=== PATIENT | female | born 1995 | race Caucasian/White ===

== ENCOUNTER 2017-10-26 17:33 | Emergency (ER) | payer MEDICAID ==
[~2017-10-26] VITALS: Ht 165.1 cm; Wt 88.2 kg
[~2017-10-26 17:33] MED LIST: DIPH25TA89 PO; ESCI20TA15 PO; HYDR-3965 PO; ZIPR80CA2 PO
[2017-10-26 18:38] LABS: URINE HCG NEGATIVE (NEG)
[2017-10-26 18:43] LABS: CLARITY,URINE CLEAR (Clear); COLOR,URINE YELLOW (Yellow); GLUCOSE, URINE NEGATIVE (Neg); KETONES,URINE NEGATIVE (Neg); LEUKOCYTE ESTERASE ,URINE NEGATIVE (Neg); NITRITES, URINE NEGATIVE (Neg); OCCULT BLOOD,URINE NEGATIVE (Neg); PH,URINE 5.5 (4.8-8.0); PROTEIN,URINE NEGATIVE (Neg); UROBILINOGEN,URINE 0.2 E.U/dL (0.2-1.0)
[2017-10-26 18:56] LABS: UA COLLECTION TYPE VOIDED
[2017-10-26] MEDS ORDERED: ketorolac tromethamine 15mg/ml inj. IM ONE (19:35)
[2017-10-26 20:07] VITALS: BP 123/68
== END 2017-10-26 20:09 | disposition home or self-care (01) ==
LOC: ER 17:33
DX: M54.5 Low back pain (principal); N89.8 Other specified noninflammatory disorders of vagina; E11.9 Type 2 diabetes mellitus without complications; F12.10 Cannabis abuse, uncomplicated; Z88.2 Allergy status to sulfonamides; Z79.899 Other long term (current) drug therapy
CPT/HCPCS: 81003; 81025; 96372; 99284; J1885

== ENCOUNTER 2018-10-29 21:54 | Emergency (ER) | payer MEDICAID ==
[~2018-10-29] VITALS: Ht 165.1 cm; Wt 96.0 kg
[2018-10-29] MEDS ORDERED: albuterol 2.5 mg/0.5ml nebule NEB ONE (22:25)
[2018-10-29] MEDS ORDERED: albuterol 2.5 MG/3 ML nebule NEB ONE (22:25)
[2018-10-29] MEDS ORDERED: ALBU6.7H INH (22:51)
[2018-10-29] MEDS ORDERED: GUAI120015 PO (22:51)
[2018-10-29 23:00] VITALS: BP 143/71
== END 2018-10-29 23:02 | disposition home or self-care (01) ==
LOC: ER 21:55
DX: J45.901 Unspecified asthma with (acute) exacerbation (principal); J06.9 Acute upper respiratory infection, unspecified; E11.9 Type 2 diabetes mellitus without complications; F12.90 Cannabis use, unspecified, uncomplicated; Z98.890 Other specified postprocedural states; Z88.2 Allergy status to sulfonamides; Z79.899 Other long term (current) drug therapy
CPT/HCPCS: 71046; 94640; 94760; 99283; J7611

== ENCOUNTER 2019-01-30 17:25 | Emergency (ER) | payer MEDICARE, MEDICAID ==
[~2019-01-30] VITALS: Ht 165.1 cm; Wt 95.0 kg
[~2019-01-30 17:25] MED LIST changes: +ALBU6.7H9 INH; +GUAI120015 PO
[2019-01-30] MEDS ORDERED: TAM75C PO (18:11)
[2019-01-30 18:50] VITALS: BP 127/78
== END 2019-01-30 18:51 | disposition home or self-care (01) ==
LOC: ER 17:27
DX: J11.1 Influenza due to unidentified influenza virus with other respiratory manifestations (principal); E11.9 Type 2 diabetes mellitus without complications; F12.90 Cannabis use, unspecified, uncomplicated; Z98.890 Other specified postprocedural states; Z88.2 Allergy status to sulfonamides; Z79.899 Other long term (current) drug therapy
CPT/HCPCS: 99283

== ENCOUNTER 2019-11-13 23:31 | Emergency (ER) | payer MEDICARE, MEDICAID ==
[~2019-11-13] VITALS: Ht 165.1 cm; Wt 200.0 kg
[2019-11-13 23:51] LABS: CLARITY,URINE CLOUDY (Clear); COLOR,URINE STRAW (Yellow); GLUCOSE, URINE NEGATIVE (Neg); KETONES,URINE NEGATIVE (Neg); LEUKOCYTE ESTERASE ,URINE LARGE (Neg); NITRITES, URINE NEGATIVE (Neg); OCCULT BLOOD,URINE MODERATE (Neg); PROTEIN,URINE 30 mg/dl (Neg); UROBILINOGEN,URINE 0.2 E.U/dL (0.2-1.0)
[2019-11-13 23:56] LABS: UA COLLECTION TYPE CLN CATCH MIDSTREAM
[2019-11-14] LABS: BACTERIA,URINE NONE SEEN /HPF (Neg); SQUAMOUS EPITHELIAL CELL,UR FEW /LPF (FEW); WBC,URINE TNTC /HPF (0-4)
[2019-11-14 00:20] LABS: BASOPHILS # (AUTO) 0.2 X10'3 (0-0.2); BASOPHILS % (AUTO) 1.3 % (0-1); EOSINOPHILS # (AUTO) 0.2 X10'3 (0-0.9); EOSINOPHILS % (AUTO) 1.8 % (0-6); HEMATOCRIT 41.5 % (35.0-45.0); HEMOGLOBIN 13.9 g/dl (12.0-16.0); LYMPHOCYTES # (AUTO) 3.3 X10'3 (1.1-4.8); LYMPHOCYTES % (AUTO) 29.5 % (21-51); MEAN CORPUSCULAR HEMOGLOBIN 30.6 PG (27.0-31.0); MEAN CORPUSCULAR HGB CONC 33.4 g/dL (33.0-36.5); MEAN CORPUSCULAR VOLUME 91.6 FL (78-98); MEAN PLATELET VOLUME 6.7 FL (7.4-10.4); MONOCYTES # (AUTO) 1.2 X10'3 (0-0.9); MONOCYTES % (AUTO) 10.7 % (2-12); NEUTROPHILS # (AUTO) 6.4 X10'3 (1.8-7.7); NEUTROPHILS % (AUTO) 56.7 % (42-75); PLATELET COUNT 375 X10'3 (140-440); RED BLOOD COUNT 4.53 X10'6 (4.20-5.60); RED CELL DISTRIBUTION WIDTH 12.9 % (11.5-14.5); WHITE BLOOD COUNT 11.2 X10'3 (4.5-11.0)
[2019-11-14] MEDS ORDERED: ondansetron/PF 4mg/2ml inj IV ONE (00:25)
[2019-11-14] MEDS ORDERED: CefTRIAXone 2gm/D5W 50ml 50 ML IV ONE (00:25)
[2019-11-14] MEDS ORDERED: normal saline 1000ML IV soln IV ONE (00:25)
[2019-11-14] MEDS ORDERED: morphine 4 MG/ML inj SYRINge IV PRN (00:25)
[2019-11-14 00:31] LABS: URINE HCG NEGATIVE (NEG)
[2019-11-14 00:35] LABS: ALANINE AMINOTRANSFERASE 27 U/L (12-78); ALBUMIN 3.6 G/DL (3.4-5.0); ALBUMIN/GLOBULIN RATIO 0.8 (1.1-1.5); ALKALINE PHOSPHATASE 139 IU/L (46-116); ANION GAP 10 (8-16); ASPARTATE AMINO TRANSFERASE 20 U/L (10-37); BILIRUBIN,TOTAL 0.4 MG/DL (0.1-1.0); BLOOD UREA NITROGEN 11 MG/DL (7-18); BUN/CREATININE RATIO 9.3 (6.6-38.0); CALCIUM 8.4 MG/DL (8.5-10.1); CHLORIDE 101 MMOL/L (99-107); CREATININE 1.18 MG/DL (0.40-0.90); GLUCOSE 84 MG/DL (70-104); LIPASE 72 U/L (73-393); POTASSIUM 3.5 MMOL/L (3.5-5.1); SODIUM 137 MMOL/L (135-145); TOTAL PROTEIN 7.9 G/DL (6.4-8.2); eGFR 56 ML/MIN
[2019-11-14] MEDS ORDERED: CEPH500C5 PO (00:45)
[2019-11-14 02:50] VITALS: BP 115/71
== END 2019-11-14 02:51 | disposition home or self-care (01) ==
LOC: ER 23:32
DX: O86.21 Infection of kidney following delivery (principal); O90.89 Other complications of the puerperium, not elsewhere classified; E11.9 Type 2 diabetes mellitus without complications; F41.9 Anxiety disorder, unspecified; F31.9 Bipolar disorder, unspecified; F20.9 Schizophrenia, unspecified; F12.90 Cannabis use, unspecified, uncomplicated; Z86.69 Personal history of other diseases of the nervous system and sense organs; Z98.890 Other specified postprocedural states; Z88.2 Allergy status to sulfonamides; Z79.899 Other long term (current) drug therapy
CPT/HCPCS: 36415; 80053; 81001; 81025; 83690; 85025; 87077; 87088; 87186; 96365; 96375; 99284; J0696; J2270; J2405; J7030

== ENCOUNTER 2020-12-13 23:30 | Emergency (ER) | payer MEDICARE, MEDICAID ==
[~2020-12-13] VITALS: Ht 165.1 cm; Wt 220.0 kg
[2020-12-14 01:00] VITALS: BP 123/69
== END 2020-12-14 01:00 | disposition home or self-care (01) ==
LOC: ER 23:30
DX: G43.909 Migraine, unspecified, not intractable, without status migrainosus (principal); G40.909 Epilepsy, unspecified, not intractable, without status epilepticus; F12.90 Cannabis use, unspecified, uncomplicated; Z98.890 Other specified postprocedural states; Z98.891 History of uterine scar from previous surgery; Z88.2 Allergy status to sulfonamides; Z79.899 Other long term (current) drug therapy
CPT/HCPCS: 93005; 99283

== ENCOUNTER 2021-10-16 18:17 | Emergency (ER) | payer MEDICARE, MEDICAID ==
[~2021-10-16] VITALS: Ht 165.1 cm; Wt 100.0 kg
[2021-10-16 18:33] VITALS: BP 133/85
[2021-10-16] MEDS ORDERED: erythromycin ophthalmic ointment 1gm tube LEFTEYE ONE (19:00)
[2021-10-16] MEDS ORDERED: proparacaine 0.5% ophthalmic drops 15ml LEFTEYE ONE (19:00)
--- NOTE | 2021-10-16 19:46 | NUR ---
proparacain placed on bedside table for er
[2021-10-16] MEDS ORDERED: prednisoLONE acetate 1% ophth susp 5ml LEFTEYE SCH (20:00)
--- NOTE | 2021-10-17 10:44 | NUR ---
Medical not sent in to pharmacy. patient called. Dr. Rodriguez wanted to place patient on Prednisolone 1% 1 drop left eye BID with 0 refills. This [facility] was [facility]. Patient aware of call in.
== END 2021-10-16 20:07 | disposition home or self-care (01) ==
LOC: ER 18:18
DX: H20.9 Unspecified iridocyclitis (principal); E11.9 Type 2 diabetes mellitus without complications; F31.9 Bipolar disorder, unspecified; F12.10 Cannabis abuse, uncomplicated; F20.9 Schizophrenia, unspecified; Z88.2 Allergy status to sulfonamides; Z79.899 Other long term (current) drug therapy
CPT/HCPCS: 99284

== ENCOUNTER 2022-09-29 13:31 | Emergency (ER) | payer MEDICARE, MEDICAID ==
[~2022-09-29] VITALS: Ht 165.1 cm; Wt 97.7 kg
[2022-09-29 13:52] VITALS: BP 142/93
[2022-09-29 14:22] LABS: CLARITY,URINE SLIGHTLY CLOUDY (Clear); COLOR,URINE YELLOW (Yellow); GLUCOSE, URINE NEGATIVE (Neg); KETONES,URINE NEGATIVE (Neg); LEUKOCYTE ESTERASE ,URINE NEGATIVE (Neg); NITRITES, URINE NEGATIVE (Neg); OCCULT BLOOD,URINE NEGATIVE (Neg); PROTEIN,URINE NEGATIVE (Neg); UROBILINOGEN,URINE 0.2 E.U/dL (0.2-1.0)
[2022-09-29 14:24] LABS: URINE HCG NEGATIVE (NEG)
[2022-09-29 14:25] LABS: UA COLLECTION TYPE CLN CATCH MIDSTREAM
[2022-09-29 14:32] LABS: BACTERIA,URINE 2+ /HPF (Neg); MUCUS STRANDS MANY /LPF (Neg); RBC,URINE NONE SEEN /HPF (0-2); SQUAMOUS EPITHELIAL CELL,UR MANY /LPF (FEW)
== END 2022-09-29 14:58 | disposition home or self-care (01) ==
LOC: ER 13:32
DX: B34.9 Viral infection, unspecified (principal); E11.9 Type 2 diabetes mellitus without complications; F31.9 Bipolar disorder, unspecified; F20.9 Schizophrenia, unspecified; F17.200 Nicotine dependence, unspecified, uncomplicated; F12.10 Cannabis abuse, uncomplicated; Z90.49 Acquired absence of other specified parts of digestive tract; Z88.0 Allergy status to penicillin; Z88.2 Allergy status to sulfonamides; Z79.899 Other long term (current) drug therapy
CPT/HCPCS: 81001; 81025; 87077; 87081; 87880; 99283

== ENCOUNTER 2023-04-09 09:32 | Emergency (ER) | payer MEDICARE, MEDICAID ==
[~2023-04-09] VITALS: Ht 165.1 cm; Wt 100.0 kg
[2023-04-09 11:26] LABS: BASOPHILS # (AUTO) 0.1 X10'3 (0-0.2); BASOPHILS % (AUTO) 0.7 % (0-1); EOSINOPHILS # (AUTO) 0.1 X10'3 (0-0.9); EOSINOPHILS % (AUTO) 0.9 % (0-6); HEMATOCRIT 43.6 % (35.0-45.0); HEMOGLOBIN 14.9 g/dl (12.0-16.0); LYMPHOCYTES # (AUTO) 2.7 X10'3 (1.1-4.8); LYMPHOCYTES % (AUTO) 25.9 % (21-51); MEAN CORPUSCULAR HEMOGLOBIN 30.8 PG (27.0-31.0); MEAN CORPUSCULAR HGB CONC 34.1 g/dL (33.0-36.5); MEAN CORPUSCULAR VOLUME 90.3 FL (78-98); MEAN PLATELET VOLUME 6.7 FL (7.4-10.4); MONOCYTES # (AUTO) 0.8 X10'3 (0-0.9); MONOCYTES % (AUTO) 7.2 % (2-12); NEUTROPHILS # (AUTO) 6.9 X10'3 (1.8-7.7); NEUTROPHILS % (AUTO) 65.3 % (42-75); PLATELET COUNT 416 X10'3 (140-440); RED BLOOD COUNT 4.83 X10'6 (4.20-5.60); RED CELL DISTRIBUTION WIDTH 13.2 % (11.5-14.5); WHITE BLOOD COUNT 10.5 X10'3 (4.5-11.0)
[2023-04-09 11:46] LABS: ALANINE AMINOTRANSFERASE 30 U/L (12-78); ALBUMIN 4.3 G/DL (3.4-5.0); ALBUMIN/GLOBULIN RATIO 0.9 (1.1-1.5); ALKALINE PHOSPHATASE 70 IU/L (46-116); ANION GAP 13 (8-16); ASPARTATE AMINO TRANSFERASE 24 U/L (10-37); BILIRUBIN,TOTAL 0.4 MG/DL (0.1-1.0); BLOOD UREA NITROGEN 16 MG/DL (7-18); BUN/CREATININE RATIO 19.3 (10.0-20.0); CALCIUM 9.5 MG/DL (8.5-10.1); CHLORIDE 106 MMOL/L (99-107); CREATININE 0.83 MG/DL (0.40-0.90); ETHANOL < 10 MG/DL (<10); GLUCOSE 103 MG/DL (70-104); SODIUM 139 MMOL/L (135-145); TOTAL CARBON DIOXIDE 20.4 MMOL/L (24-32); eCRCL 91 ML/MIN; eGFR 82 ML/MIN
[2023-04-09 12:04] LABS: URINE HCG NEGATIVE (NEG)
--- NOTE | 2023-04-09 12:07 | NUR ---
PT STATES THAT SHE DOES NOT HAVE SI/HER FRIEND LAST NIGHT/HER REMARK THAT SHE WAS GOING TO KILL HERSELF WAS D/T BEING EMOTIONAL ABOUT THIS.
[2023-04-09] MEDS ORDERED: ibuprofen 200mg tablet PO ONE ×2 (12:15→17:00)
[2023-04-09] MEDS ORDERED: pantoprazole 40mg Tablet.DR PO SCH ×2 (12:15→15:35)
[2023-04-09] MEDS ORDERED: pantoprazole 40mg Tablet.DR PO ONE (12:15)
[2023-04-09] MEDS ORDERED: levoTHYROXINE 25mcg tablet PO ONE (12:15)
--- NOTE | 2023-04-09 12:18 | NUR ---
PT REQ HER DAILY MEDS LEVOTHYROXINE 5 MG/PROTONIX 40 MG/ PT ALSO REQ IBUPROFEN 200MG FOR LOPEZ. PER DR KAROLINA DUNN OCTOBER ORD AND ADMIN A ONE TIME DOSE OF MEDS
[2023-04-09 12:20] LABS: URINE AMPHETAMINE SCREEN NEGATIVE (Neg); URINE BARBITUATE SCREEN NEGATIVE (Neg); URINE BENZODIAZEPINES SCREEN NEGATIVE (Neg); URINE CANNABINOID SCREEN POSITIVE (Neg); URINE COCAINE SCREEN NEGATIVE (Neg); URINE OPIATE SCREEN NEGATIVE (Neg); URINE PHENCYCLIDINE SCREEN NEGATIVE (Neg)
--- NOTE | 2023-04-09 12:45 | NUR ---
PT GRANDMOTHER BROUGHT PT UNDERWEAR AND TOOK HER PERSONAL BELONGINGS.
--- NOTE | 2023-04-09 12:50 | NUR ---
PT REFUSING SYNTHROID AND PROTONIX AT THIS TIME D/T SHE ATE A FEW BITES OF HER LUNCH TRAY.
--- NOTE | 2023-04-09 13:06 | NUR ---
PT REFUSING LEVOTHYROXINE AND PROTONIX AT THIS TIME.
[2023-04-09] MEDS ORDERED: ibuprofen tablet 400 MG TABLET PO ONE (14:15)
--- NOTE | 2023-04-09 14:17 | NUR ---
PER DR TURCIOS RN MAY ORD AND ADMIN ADDITIONAL 400 MG OF IBUPROFEN D/T PT C/O LOPEZ.
--- NOTE | 2023-04-09 14:55 | NUR ---
[facility] FAXED.
--- NOTE | 2023-04-09 15:07 | NUR ---
PT STATED THAT SHE FELT LIKE SHE WAS LIGHTHEADED. PT REFUSED TECH TO TAKE HER VITAL SIGNS.
[2023-04-09] MEDS ORDERED: levoTHYROXINE 25mcg tablet PO SCH (15:35)
--- NOTE | 2023-04-09 16:13 | NUR ---
Patient brought to bed 23 from main ER.
--- NOTE | 2023-04-09 16:50 | NUR ---
One to one with patient at bedside. Patient reports that her niece walked into traffic [place] [address] and was killed last night. Patient states that she went over to her mother's house to tell her the news and to be around family. They called the police and informed her that she was not allowed on the premesis and called the police. Patient was getting in her car, and said "I guess I'll go kill myself", and she was pulled from the car and taken to [facility]. Patient states that she is not suicidal, that she was filled with grief. Patient states that she has never done anything to harm herself in the past, and has no plan to. Patient states that she just wants to go home to her 3 year old daughter.
--- NOTE | 2023-04-09 17:36 | NUR ---
Patient is being discharged home. Patient has been evaluated by [facility] and [id number] has been rescinded. Patient is being picked up by friend to go home to her 3 year old.
[2023-04-09 17:44] VITALS: BP 114/69; PULSE 70; RESP 16; TEMP 97.2; O2SAT 99
== END 2023-04-09 17:49 | disposition home or self-care (01) ==
LOC: ER 09:32
DX: R45.851 Suicidal ideations (principal); Z20.822 Contact with and (suspected) exposure to COVID-19; F31.9 Bipolar disorder, unspecified; F17.200 Nicotine dependence, unspecified, uncomplicated; F12.90 Cannabis use, unspecified, uncomplicated; Z88.0 Allergy status to penicillin; Z88.2 Allergy status to sulfonamides; Z79.890 Hormone replacement therapy
CPT/HCPCS: 36415; 80053; 80305; 80320; 81025; 85025; 87811; 99285